=== PATIENT | female | born 1975 | race Caucasian/White ===

== ENCOUNTER 2017-12-29 14:32 | Outpatient (CLI) ==
--- NOTE | 2017-12-29 14:53 | DI ---
EXAM: Two views of the right elbow. History: Right elbow pain. Findings: No acute fracture or dislocation. No abnormal calcifications or radiopaque foreign bodies . Joint spaces are preserved. No joint effusion. Seen on the frontal projection there is a question able subtle cortical defect within the distal right humeral metaphysis ulnar side. Impression: 1. No acute osseous abnormality. 2. Questionable subtle cortical defect within the distal right humeral metaphysis ulnar side. Corre late with point tenderness, consider correlation with MRI or CT.
== END 2017-12-29 14:33 | disposition home or self-care (01) ==
LOC: RAD 14:32
PROVIDERS: ATTEND Family Medicine
DX: M77.11 Lateral epicondylitis, right elbow (principal)